=== PATIENT | female | born 1995 | race Caucasian/White ===

== ENCOUNTER 2017-08-03 22:01 | Emergency (ER) | payer OTHER ==
[2017-08-04 00:10] VITALS: BP 121/83
== END 2017-08-04 00:10 | disposition home or self-care (01) ==
LOC: ED 22:01
DX: N93.9 Abnormal uterine and vaginal bleeding, unspecified (principal); Z88.1 Allergy status to other antibiotic agents

== ENCOUNTER 2019-06-12 00:39 | Emergency (ER) | payer OTHER ==
[~2019-06-12] VITALS: Ht 167.6 cm; Wt 94.3 kg
[2019-06-12 00:43] VITALS: Ht 167.6 cm; Wt 94.3 kg
[2019-06-12 02:24] LABS: BASOPHIL % 0.6 % (0-2); PLATELET COUNT 216 x10^3mcL (130-400); RED CELL DISTRIBUTION WIDTH 14.5 % (11.5-14.5)
[2019-06-12 03:28] VITALS: BP 118/72
== END 2019-06-12 03:28 | disposition home or self-care (01) ==
LOC: ED 00:39
PROVIDERS: Emergency Medicine
DX: N93.9 Abnormal uterine and vaginal bleeding, unspecified (principal); Z88.0 Allergy status to penicillin
CPT/HCPCS: 36415